=== PATIENT | female | born 1960 | race Caucasian/White ===

== ENCOUNTER 2016-11-26 13:43 | Inpatient (IN) | payer OTHER ==
[~2016-11-26] VITALS: Ht 160 cm; Wt 90.3 kg
[2016-12-01] MEDS ORDERED: AUGMENTIN 250250 MG PO (14:18)
[2016-12-01] MEDS ORDERED: COLACE-DPS100 MG PO (14:19)
[2016-12-01] MEDS ORDERED: NORCO 5-325 TA1 EACH PO (14:19)
[2016-12-01] MEDS ORDERED: FLAGYL-DPS500 MG PO (14:19)
--- NOTE | 2016-12-08 07:06 | HP ---
ADMIT: 11/26/2016 RM/LOC: 525 [id number] [id number] [address] [address] [place] [address] [place] [address] History and Physical SEX: F AGE: 56 : 1960 Corrected: 11/27/2016 0555 njv DATE OF SERVICE: CHIEF COMPLAINT: Left lower quadrant pain. HISTORY OF PRESENT ILLNESS: This is a pleasant 56-year-old, female patient of Dr. Wayne Ramon, who has had about a 3-day history of abdominal pain in the left lower quadrant. It started pretty suddenly. She has had diarrhea associated with this as well as nausea and vomiting. She has had blood work done at [facility], which showed her white count to be elevated around 19,000 with a left shift. She came down for a CT scan at [facility] today, which reveals acute perforated diverticulitis with local perforation, so she was sent over to my office for surgical evaluation. She has not felt well again for last few days. Prior to that, she was feeling okay. PAST MEDICAL HISTORY: ILLNESSES: Essentially none. PREVIOUS SURGERIES: . MEDICATIONS:: I believe are none. ALLERGIES: LATEX. SOCIAL HISTORY: She denies tobacco or alcohol use. FAMILY HISTORY: Noncontributory. REVIEW OF SYSTEMS: A 10-point review of systems is essentially negative with the exception of her vomiting, left lower quadrant abdominal pain, diarrhea, and decreased appetite. PHYSICAL EXAMINATION: GENERAL: She is alert. She is oriented. She is obviously uncomfortable. VITAL SIGNS: Temperature 99.7. HEENT: Normal. LUNGS: Clear bilaterally. HEART: Regular without murmurs. ABDOMEN: Somewhat firm. Pretty good in left lower quadrant with some guarding and rebound in the left lower quadrant. Focalized peritoneal signs. EXTREMITIES: Warm and pink without edema. ADMIT: 11/26/2016 RM/LOC: 525 [facility] MR#: [id number] [address] [address] [place] [address] [place] [address] History and Physical SEX: F AGE: 56 : 1960 ASSESSMENT: Acute diverticulitis with localized perforation. PLAN: I did recommend admitting her to the hospital. We will give her IV fluid bolus, start her on Unasyn 3 g IV q.6 hours and then follow her blood work and exam while she is in the hospital. I did discuss with her that we will try to manage things nonoperatively, but there is a chance that she may ultimately require surgery if her symptoms worsen if her exam worsens. She and her understand all that and agree with this plan. Job Liao MD/ holden JOB #: [id number] CC: Job Liao, Attending Physician Wayne Ramon, Family Physician Wanye Ramon MD Corrected: 11/27/2016 0555 njv
--- NOTE | 2016-12-28 14:06 | DS ---
ADMIT: 11/26/2016 RM/LOC: 525 [facility] MR#: [id number] [address] [address] [place] [address] [place] [address] Discharge Summary SEX: F AGE: 56 : 1960 ADMISSION DATE: 11/26/2016 DISCHARGE DATE: 11/30/2016 ADMITTING DIAGNOSIS: Acute diverticulitis with localized perforation. DISMISSAL DIAGNOSES: 1. Acute diverticulitis with localized perforation. 2. Previous . PROCEDURES: None. HOSPITAL COURSE: The patient was an inpatient admit with routine med surg orders. She was given IV fluid resuscitation and started on IV antibiotic therapy. 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 On hospital day one, the patient had exquisite tenderness in her abdomen, but this began to resolve on its own. On hospital day number four, a CT of abdomen and pelvis confirmed diverticular disease with acute diverticulitis. Slowly, the patient continued to recover well. She was weaned off her morphine and was tolerating oral pain pills. She did not require a drain while in the hospital. She continued to recover well. Her lab work normalized and her pain was controlled. She was tolerating an advanced diet and had normal bowel function, so the patient was able to discharge to home on 11/30/2016. DISCHARGE INSTRUCTIONS: 1. Follow up with Dr. Mcgraw in [place] December 22. DISCHARGE MEDICATION LIST: 1. Augmentin 875 mg b.i.d. for 10 days. 2. Flagyl 500 mg t.i.d. for 10 days. 3. Colace 100 mg b.i.d. p.r.n. 4. Lortab 5/325 1-2 tabs q.4-6 hours p.r.n. pain. PASCUAL Mejia / Job Liao MD / manpreet JOB #: [id number] CC: Job Liao MD, Attending Physician Wayne Ramon MD, Family Physician
== END 2016-11-30 19:20 | disposition home or self-care (01) | DRG 392 ==
LOC: 5MS 13:43
PROVIDERS: ADMIT Surgery
DX: K57.80 Diverticulitis of intestine, part unspecified, with perforation and abscess without bleeding (principal)